=== PATIENT | male | born 1980 | race Caucasian/White ===

== ENCOUNTER 2018-08-20 04:03 | Emergency (ER) | payer SELFPAY ==
--- NOTE | 2018-08-20 04:32 | EDPHYS ---
Physician Documentation [facility] Name: Fabien Bazan Age: 37 yrs Sex: Male : 1980 Arrival Date: 08/20/2018 Time: 04:08 Bed 13 Private MD: ED Physician Antwan Rosado HPI: 08/20 04:29 This 37 yrs old Male presents to ER via Ambulatory with complaints of Asthma gs Exacerbation. 04:29 Onset: The symptoms/episode began/occurred yesterday. Modifying factors: The symptoms gs are alleviated by nothing, the symptoms are aggravated by nothing. Associated signs and symptoms: Pertinent negatives: chest pain, choking, fever. Severity of symptoms: At their worst the symptoms were mild in the emergency department the symptoms are unchanged. The patient has experienced similar episodes in the past, a few times. RAN OUT OF MEDS. Historical: - Allergies: 04:19 No Known Allergies; lp1 - Home Meds: 04:19 citalopram oral [Active]; lp1 - PMHx: 04:19 Asthma; Depression; lp1 - PSHx: 04:19 None; lp1 - Immunization history:: Adult Immunizations up to date. - Social history:: Smoking status: Patient uses tobacco products, denies chronic smoking, but will smoke occasionally. - Ebola Screening: : No symptoms or risks identified at this time. ROS: 04:29 All other systems are negative. gs Exam: 04:29 Head/Face: Normocephalic, atraumatic. Eyes: Pupils equal round and reactive to light, gs extra-ocular motions intact. Lids and lashes normal. Conjunctiva and sclera are non-icteric and not injected. Cornea within normal limits. Periorbital areas with no swelling, redness, or edema. ENT: Nares patent. No nasal discharge, no septal abnormalities noted. Tympanic membranes are normal and external auditory canals are clear. Oropharynx with no redness, swelling, or masses, exudates, or evidence of obstruction, uvula midline. Mucous membranes moist. Neck: Trachea midline, no thyromegaly or masses palpated, and no cervical lymphadenopathy. Supple, full range of motion without nuchal rigidity, or vertebral point tenderness. No Meningismus. Chest/axilla: Normal chest wall appearance and motion. Nontender with no deformity. No lesions are appreciated. Cardiovascular: Regular rate and rhythm with a normal S1 and S2. No gallops, murmurs, or rubs. Normal PMI, no JVD. No pulse deficits. Abdomen/GI: Soft, non-tender, with normal bowel sounds. No distension or tympany. No guarding or rebound. No evidence of tenderness throughout. Back: No spinal tenderness. No costovertebral tenderness. Full range of motion. Skin: Warm, dry with normal turgor. Normal color with no rashes, no lesions, and no evidence of cellulitis. MS/ Extremity: Pulses equal, no cyanosis. Neurovascular intact. Full, normal range of motion. Neuro: Awake and alert, GCS 15, oriented to person, place, time, and situation. Cranial nerves II-XII grossly intact. Motor strength 5/5 in all extremities. Sensory grossly intact. Cerebellar exam normal. Normal gait. 04:29 Constitutional: The patient appears alert, awake. 04:29 Respiratory: the patient does not display signs of respiratory distress, Respirations: normal, Breath sounds: wheezing: expiratory that is mild, is scattered. Vital Signs: 04:17 BP 108 / 79; Pulse 95; Resp 18; Temp 97.8(O); Pulse Ox 99% on R/A; Weight 83.91 kg; lp1 Height 5 ft. 11 in. (180.34 cm); Pain 0/10; 04:59 BP 141 / 86; Pulse 100; Resp 18; Pulse Ox 100% on R/A; lp1 04:17 Body Mass Index 25.80 (83.91 kg, 180.34 cm) lp1 MDM: 04:16 Patient medically screened. 04:29 Differential diagnosis: acute asthma, exercise-induced asthma, reactive airway, URI. gs Data reviewed: vital signs, nurses notes. Counseling: I had a detailed discussion with the patient and/or guardian regarding: the historical points, exam findings, and any diagnostic results supporting the discharge/admit diagnosis, the need for outpatient follow up. Response to treatment: the patient's symptoms have markedly improved after treatment, and as a result, I will discharge patient. Administered Medications: 04:27 Drug: AtroVENT Aerosol 0.5 mg Route: Inhalation; lp1 04:27 Drug: Albuterol 2.5 mg Route: Inhalation; lp1 04:27 Drug: predniSONE 40 mg Route: PO; lp1 04:58 Follow up: Response: No adverse reaction lp1 Disposition: 08/20/18 04:31 Discharged to Home. Impression: Acute bronchospasm. - Condition is Stable. - Discharge Instructions: Asthma, Adult. - Prescriptions for Prednisone 20 mg Oral Tablet - take 1 tablet by ORAL route once daily for 5 days; 5 tablet. Albuterol Sulfate 2.5 mg /3 mL (0.083 %) Inhalation Solution for Nebulization - inhale 1 unit by NEBULIZATION route every 8 hours As needed; 1 box. Albuterol Sulfate 90 mcg/actuation - inhale 1-2 puff by INHALATION route every 4-6 hours; 1 Inhaler. - Medication Reconciliation Form, Thank You Letter, Antibiotic Education, Prescription Opioid Use form. - Follow up: Private Physician; When: 1 - 2 days; Reason: Re-evaluation by your physician. Signatures: Valerie Roche RN RN lp1 Antwan Rosado MD MD Corrections: (The following items were deleted from the chart) 04:59 04:31 08/20/2018 04:31 Discharged to Home. Impression: Acute bronchospasm. Condition is lp1 Stable. Forms are Medication Reconciliation Form, Thank You Letter, Antibiotic Education, Prescription Opioid Use. Follow up: Private Physician; When: 1 - 2 days; Reason: Re-evaluation by your physician. gs
--- NOTE | 2018-08-20 04:32 | ER ---
Nurse's Notes [facility] Name: Fabien Bazan Age: 37 yrs Sex: Male : 1980 Arrival Date: 08/20/2018 Time: 04:08 Bed 13 Private MD: Diagnosis: Acute bronchospasm Presentation: 08/20 04:16 Presenting complaint: Patient states: "I'm having an asthma attack and I need a lp1 breathing treatment"; Patient states out of nebulizer medication x 2 months, states shortness of breath for the past 3 days and "I just can't take it anymore". Transition of care: patient was not received from another setting of care. Onset of symptoms was August 20, 2018. Risk Assessment: Do you want to hurt yourself or someone else? Patient reports no desire to harm self or others. Initial Sepsis Screen: Does the patient meet any 2 criteria? No. Patient's initial sepsis screen is negative. Does the patient have a suspected source of infection? No. Patient's initial sepsis screen is negative. Care prior to arrival: None. 04:16 Method Of Arrival: Ambulatory lp1 04:16 Acuity: JOSE 3 lp1 Historical: - Allergies: 04:19 No Known Allergies; lp1 - Home Meds: 04:19 citalopram oral [Active]; lp1 - PMHx: 04:19 Asthma; Depression; lp1 - PSHx: 04:19 None; lp1 - Immunization history:: Adult Immunizations up to date. - Social history:: Smoking status: Patient uses tobacco products, denies chronic smoking, but will smoke occasionally. - Ebola Screening: : No symptoms or risks identified at this time. Screenin:20 Abuse screen: Denies threats or abuse. Denies injuries from another. Nutritional lp1 screening: No deficits noted. Tuberculosis screening: No symptoms or risk factors identified. Fall Risk None identified. Assessment: 04:19 General: Appears in no apparent distress. Behavior is calm. Pain: Denies pain. Neuro: lp1 Level of Consciousness is awake, alert, obeys commands. Cardiovascular: Patient's skin is warm and dry. Respiratory: Reports shortness of breath Airway is patent Respiratory effort is even, unlabored, Respiratory pattern is regular, Breath sounds with wheezes bilaterally. Onset: The symptoms/episode began/occurred gradually, the patient has mild shortness of breath. GI: No signs and/or symptoms were reported involving the gastrointestinal system. : No signs and/or symptoms were reported regarding the genitourinary system. EENT: No signs and/or symptoms were reported regarding the EENT system. Derm: Skin is pink, warm \\T\\ dry. Musculoskeletal: No signs and/or symptoms reported regarding the musculoskeletal system. 04:58 Reassessment: Patient states feeling better. Patient states symptoms have improved. lp1 Vital Signs: 04:17 BP 108 / 79; Pulse 95; Resp 18; Temp 97.8(O); Pulse Ox 99% on R/A; Weight 83.91 kg; lp1 Height 5 ft. 11 in. (180.34 cm); Pain 0/10; 04:59 BP 141 / 86; Pulse 100; Resp 18; Pulse Ox 100% on R/A; lp1 04:17 Body Mass Index 25.80 (83.91 kg, 180.34 cm) lp1 ED Course: 04:08 Patient arrived in ED. ag3 04:13 Valerie Roche RN is Primary Nurse. lp1 04:15 Antwan Rosado MD is Attending Physician. 04:17 Triage completed. lp1 04:18 Arm band placed on right wrist. lp1 04:20 Patient has correct armband on for positive identification. lp1 04:20 No provider procedures requiring assistance completed. lp1 04:58 Patient did not have IV access during this emergency room visit. lp1 Administered Medications: 04:27 Drug: AtroVENT Aerosol 0.5 mg Route: Inhalation; lp1 04:27 Drug: Albuterol 2.5 mg Route: Inhalation; lp1 04:27 Drug: predniSONE 40 mg Route: PO; lp1 04:58 Follow up: Response: No adverse reaction lp1 Outcome: 04:31 Discharge ordered by . 04:59 Discharged to home ambulatory. lp1 04:59 Condition: good 04:59 Discharge instructions given to patient, Instructed on discharge instructions, follow up and referral plans. medication usage, Demonstrated understanding of instructions, follow-up care, medications, Prescriptions given X 3. 04:59 Patient left the ED. lp1 Signatures: Valerie Roche RN RN 1 Antwan Rosado MD MD Yajaira Gonzalez 3
[2018-08-20] MEDS ORDERED: predniSONE 20 MG TAB ONE (04:39)
[2018-08-20] MEDS ORDERED: IPRATROPIUM BROM 0.5MG/2.5ML ONE (04:39)
[2018-08-20] MEDS ORDERED: ALBUTEROL 2.5 MG/3 ML NEB SOL ONE (04:39)
[2018-08-20 05:22] VITALS: TEMP 97.8
[2018-08-20 05:23] VITALS: BP 141/86; O2SAT 100
== END 2018-08-20 04:59 | disposition home or self-care (01) ==
LOC: ER 04:03
DX: J45.901 Unspecified asthma with (acute) exacerbation (principal); F32.9 Major depressive disorder, single episode, unspecified; Z72.0 Tobacco use
CPT/HCPCS: 99284; J7512